=== PATIENT | female | born 1995 | race Caucasian/White ===

== ENCOUNTER 2025-01-13 08:09 | Emergency (ER) | payer BC, OTHER ==
[~2025-01-13] VITALS: Ht 154.9 cm; Wt 62.7 kg
[2025-01-13] MEDS ORDERED: AMOX-580 PO (10:07)
--- NOTE | 2025-01-13 10:08 | Physician Documentation ---
History of Present Illness ~ Chief Complaint: Sore Throat Stated Complaint: STREP THROAT Time Seen by MD: 09:29 OK to notify your PCP?: Yes Primary Medical Doctor: PATRICIA Source: patient Mode of Arrival: POV Exam Limitations: no limitations HPI 29-year-old female who is here with mother due to sore throat which he states started five days ago. She ended up contacting telehealth on Tuesday and was diagnosed with strep throat and got prescribed amoxicillin 500 mg TID which she has now been on for 48 hours without any improvement. Patient states she is immunocompromised due to being on immunosuppressant medications for multiple sclerosis in his concerned because her symptoms seem to be getting worse with regards to feeling nauseated also reporting some episodes of vomiting. She did do a COVID test which was negative. Medication Reconciliation Allergies: Coded Allergies: No Known Allergies (Unverified , 01/13/25) Scheduled Amox Tr/Potassium Clavulanate 875/125 MG (Augmentin 875/125 MG), 1 TAB PO Q12H Past Medical History Past Medical History: Multiple Sclerosis, Asthma Past Surgical History: no surgical history Alcohol Use: None Drug Use: none Lives with: Family Lives In: Home Occupation: student Review of Systems All Other Systems at this time: Reviewed and Negative Physical Exam Vital Signs: Temperature: 98.0, Source: Temporal, Heart Rate: 115, Respiratory Rate: 18, BP: 109/75, Pulse Oximetry: 98, Weight: 62.730 Physical Exam General Appearance: Alert, WD/WN. NAD. HEENT: NCAT, PERRL, EOMI. Posterior pharyngeal wall erythematous with exudates, swallowing secretions normally. Bulbar conjunctiva clear no increased injection, no rhinorrhea. Neck: Supple, trachea midline. Bilateral submandibular lymphadenopathy no posterior cervical lymphadenopathy. Cardiovascular: RRR. No m/r/g. Lungs: CTAB. Breathing unlabored Extremities: Normal inspection. No edema. Skin: Warm/dry, normal color Neurological: Alert and oriented x4, normal gait. Psychiatric: Affect congruent with mood. Progress Results/Orders Results/Orders Orders - MARION LOPES Cult Throat + R/O Beta Strep (01/13/25 10:23) Completed Orders - MARION LOPES Strep A Rapid (01/13/25 09:29) Amox Tr/Potassium Clavulanate (Augmentin (01/13/25 10:05) Ondansetron Disint. Tablet (Zofran Odt T (01/13/25 10:15) Medications Received in ER Medications (Trade) Dose Ordered Sig/Cory Route PRN Reason Start Time Stop Time Status Last Admin Dose Admin (Augmentin 875-125mg tablet) 1 tab ONCE ONCE PO 01/13/25 10:05 01/13/25 10:06 DC 01/13/25 10:13 1 TAB (Zofran ODT tablet) 4 mg ONCE ONCE PO 01/13/25 10:15 01/13/25 10:16 DC 01/13/25 10:19 4 MG Vital Signs 01/13/25 08:20 Temp 98.0 Pulse 115 Resp 18 B/P (MAP) 109/75 Pulse Ox 98 Laboratory Tests Test 01/13/25 10:00 Group A Streptococcus Rapid Negative Medical Decision Making Throat Diff Dx: Considerations: Include: AIDS, Epiglottitis, Esophageal candidiasis, Hand foot mouth disease, Herpangina, Herpetic stomatitis, Herpes simplex, Infection mononucleosis, Immunodeficiency, Erick's angina, Peritonsi llar abscess, Peritonsillar cellulitis, Pharyngitis-diphtheria, Pharyngitis- strepococcal, Pharyngitis-viral, Thrush, URI, Other Additional Comment Given the fact that patient is immunocompromised and home covid test negative as well as the exudates on exam, I still recommend treatment with ABX. Departure Time of Disposition: 10:05 Disposition: 01 HOME / SELF CARE / HOMELESS Impression: Primary Impression: Acute pharyngitis Qualified Codes: J02.9 - Acute pharyngitis, unspecified Additional Impressions: Immunocompromised state due to drug therapy Multiple sclerosis Condition: Stable Discharge Instructions: Pharyngitis Additional Instructions: AUGMENTIN SENT TO PHARMACY STOP THE AMOXICILLIN WE GAVE YOU FIRST DOSAGE HERE SO NEXT DOSAGE NOT DUE FOR 12HOURS THERE WAS NO CONCERN ON EXAM FOR PERITONSILLAR ABSCESS OR ANOTHER COMPLICATION FROM STREP THROAT; HOWEVER, IF INCREASING THROAT PAIN, UNABLE TO SWALLOW SECRETIONS. YOUR STREP WAS NEGATIVE; MANY OF THE CAUSES OF THIS ARE VIRAL AND ANTIBIOTICS WILL NOT WORK BUT YOUR HOME COVID TEST WAS NEGATIVE AND YOU DO HAVE FINDINGS ON EXAM (EXUDATES) CONSISTENT WITH BACTERIAL CAUSES. GIVEN YOUR IMMUNOSUPPRESSION I STILL RECOMMEND TREATMENT WITH ABX. Referrals: NO PRIMARY CARE PROVIDER (PCP) Prescriptions ONDANSETRON ODT 4mg tablet (ONDANSETRON ODT) 4 Mg Tab.rapdis 1 TAB PO Q6H PRN PRN for nausea/vomiting for 4 Days, #16 TAB 0 Refills Prov: MARION LOPES 01/13/25 Amox Tr/Potassium Clavulanate 875/125 MG (Augmentin 875/125 MG) 875 Mg-125 Mg Tablet 1 TAB PO Q12H for 10 Days, #20 TAB Prov: MARION LOPES 01/13/25 Signature Scribe Signature: X Attestation: MARION BOLES Jan 13, 2025 10:08
[2025-01-13] MEDS: amox tr/potassium clavulanate 875/125mg TAB PO ONE (10:13)
[2025-01-13] MEDS: ondansetron 4mg rapidly disintigrating tab PO ONE (10:19)
[2025-01-13 10:23] LABS: STREP A SCREEN NEGATIVE (Neg)
[2025-01-13] MEDS ORDERED: ONDA-243 PO (10:56)
[2025-01-13] MEDS: mag hydrox/Alum hydrox/simeth 30ml oral suspension PO ONE (11:10)
[2025-01-13] MEDS: LIDOcaine 2% Viscous 15ml cup MM PRN (11:10)
[2025-01-13 11:21] VITALS: BP 128/82; PULSE 110; RESP 18; TEMP 97.8; O2SAT 98
== END 2025-01-13 11:23 | disposition home or self-care (01) ==
LOC: ER 08:09
DX: J02.9 Acute pharyngitis, unspecified (principal); J45.909 Unspecified asthma, uncomplicated; D84.821 Immunodeficiency due to drugs; G35 Multiple sclerosis
CPT/HCPCS: 87081; 87880; 99284